=== PATIENT | female | born 1990 | race Two or more races ===

== ENCOUNTER 2024-12-01 17:58 | Observation (INO) | payer OTHER, SELFPAY ==
[2024-12-01] VITALS (16 sets, daily range): BP systolic 121; BP diastolic 71; PULSE 83–104; RESP 18–97; TEMP 36.9; O2SAT 96–98; BMI 36.9
[2024-12-01 18:41] LABS: ROM Kit Exp Date# 04/11/28; ROM Kit Lot # 58106258; ROM Swab Mixed By: FS; Swb Mxed in Solvent 1 min? Yes
[2024-12-01 18:44] LABS: Rupture of Fetal Membranes Negative (Negative)
== END 2024-12-01 19:23 | disposition home or self-care (01) ==
PROVIDERS: Admitting Provider Specialist; Visit Provider Specialist
DX: Z34.83 Encounter for supervision of other normal pregnancy, third trimester (principal); Z3A.39 39 weeks gestation of pregnancy
CPT/HCPCS: 59899; 84112

== ENCOUNTER 2024-12-11 23:40 | Inpatient (IN) | payer BC, SELFPAY ==
[2024-12-11 23:48] VITALS: BP 127/80; PULSE 100; RESP 18; RESP 96; TEMP 37; BMI 36.8
[2024-12-11 23:52] VITALS: BP 127/80; PULSE 100; PULSE 98; O2SAT 96
[2024-12-11 23:57] VITALS: PULSE 111; O2SAT 96
[2024-12-12] VITALS (21 sets, daily range): BP systolic 103–145; BP diastolic 56–83; PULSE 69–121; RESP 16–18; TEMP 36.6–37.1; O2SAT 96–98; BMI 36.8
[2024-12-12] MEDS: RINGERS LACTATED 1000 ML 1,000 ML 100 ML IV (00:30)
--- NOTE | 2024-12-12 01:22 | PD.LDHP ---
Documentation for date of: 12/12/24 OB Labor/Induct. HPI History of Present Illness Comments: RE: VIVIEN CROOK : 1990 DATE OF ADMISSION: 12/12/2024 This is a 34-year-old 5, para 3-0-1-3 with due date of 12/06 with intrauterine at 40 weeks 6 days , who presents for to [facility] for contractions. The RN notes she is 6 cm in active labor. She denies any leaking or bleeding. Reports normal movement. complicated by third trimester itching without rash with work up showing normal bile acid level 3.0 cm ruling out cholestasis. ALLERGIES: NO KNOWN DRUG ALLERGIES. MEDICATIONS: multivitamin 1 p.o. daily. PAST MEDICAL HISTORY: Asthma, white coat hypertension, seasonal allergies, rubella nonimmune, urinary tract infection in due to Enterococcus faecalis on 06/09/2024. FAMILY HISTORY: Nephew has autism. Father, paternal grandmother, paternal uncle all have diabetes. Paternal grandmother, stroke. SOCIAL HISTORY: She is . She denies any alcohol, drug use or smoking. OBSTETRIC HISTORY: In 2014, 6 weeks spontaneous AB, no D and C. In 10/2015, 40-week normal vaginal delivery, 1-quahw-5-ounce male, no complications. In 10/2017, 40-week normal vaginal delivery, 0-livvd-4-ounce female, no complications. In 05/2020, 40-week normal vaginal delivery, 4-stgpf-9-ounce female, no complications. PAST SURGICAL HISTORY: Denies. REVIEW OF SYSTEMS: She denies any chest pain, palpitations, cough, fever, shortness of breath or lower extremity pain. PHYSICAL EXAMINATION: VITAL SIGNS: Blood pressure 112/69, heart rate 88, respirations 18, temperature is 98.6, weight 207 pounds. HEENT: Oropharynx and sclerae clear. LUNGS: Clear to auscultation bilaterally. HEART: Regular rate and rhythm. ABDOMEN: Gravid, term size, consistent with estimated weight 8.5 pounds. EXTREMITIES: Nontender. SKIN: No gross rashes or lesions. NEUROLOGIC: No focal deficit. Pelvic Exam: See RN notes. ASSESSMENT AND PLAN: Intrauterine at 40 weeks 6 days , Active Labor. Anticipate . Informed consent obtained. The patient was made aware of the risk complications alternatives and benefits of operative vaginal delivery and delivery. She agrees with these modes of delivery if indicated Labs Labs: Negative: RPR, Hepatitis B, Rubella Titre, HIV, Chlamydia, Gonorrhea and Group Beta Strep and Unknown: Herpes Type 1, Herpes Type 2 and Covid-19 Meds Home Medications and Allergies Home Medications ?Medication ?Instructions ?Recorded ?Confirmed ?Type vitamin-ferrous fumarate 1 tab PO QDAY 05/15/20 12/12/24 History 28 mg iron-folic acid 800 mcg tablet ( Vitamins with Minerals) cetirizine 10 mg capsule (All Day 10 mg PO QDAY 12/12/24 12/12/24 History Allergy (cetirizine)) Allergies Allergy/AdvReac Type Severity Reaction Status Date / Time No Known Allergies Allergy Verified 12/11/24 23:49 OB Exam Physical Exam Vital signs: Temp Pulse Resp BP Pulse Ox 98.6 F 91 16 128/83 96 12/11/24 23:48 12/12/24 00:07 12/12/24 00:37 12/12/24 00:07 12/12/24 00:12
[2024-12-12 01:57] LABS: Basophils # (Auto) 0.0 Thou/mm3 (0.0-0.2); Basophils % (Auto) 0 % (0-2.5); Eosinophils # (Auto) 0.1 Thou/mm3 (0.0-0.5); Eosinophils % (Auto) 1 % (0-10); Hematocrit 40.7 % (36.0-46.0); Hemoglobin 13.5 g/dL (12.0-16.0); Immature Granulocytes Auto 0.04 Thou/mm3 (0.00-0.00); Lymphocytes # (Auto) 2.6 Thou/mm3 (1.0-4.8); Lymphocytes % (Auto) 21 % (10-50); Mean Corpuscular HGB Conc 33.2 g/dl (31.0-37.0); Mean Corpuscular Hemoglobin 29.2 pg (25.0-35.0); Mean Corpuscular Volume 88 fL (80-100); Monocytes # (Auto) 0.9 Thou/mm3 (0.0-0.8); Monocytes % (Auto) 7 % (0-12); Neutrophils # (Auto) 8.8 Thou/mm3 (1.8-7.7); Neutrophils % (Auto) 71 % (37-80); Nucleated Red Blood Cell # 0.00 Thou/mm3 (0.00-0.00); Nucleated Red Blood Cell % 0 /100 WBC (0); Platelet Count 265 Thou/mm3 (140-440); RDW Standard Deviation 47.7 fL (36.4-46.3); Red Blood Count 4.62 Miln/mm3 (4.00-5.20); White Blood Count 12.4 Thou/mm3 (3.6-11.0)
--- NOTE | 2024-12-12 01:59 | ESDS_ITS ---
DS: Providers Provider Date of admission: 12/12/24 00:30 Primary care physician: Physician No Primary/Family Admitting Provider: Steven Olivares MD Attending Provider on Admission: Steven Olivares MD Attending Provider on DC: Steven Olivares MD Discharging Provider: Steven Olivares MD DS: Diagnosis Problem List Completed Was Problem List Reviewed/Reconciled?: Yes Summary/Hosp Course Peripartum Data Delivery Method: Normal Vaginal Delivery Time Spent with Patient Time attestation: Total time spent providing and/or coordinating discharge services: Exam Vital Signs Temp Pulse Resp BP Pulse Ox 98.6 F 87 16 122/64 96 12/11/24 23:48 12/12/24 01:46 12/12/24 00:37 12/12/24 01:46 12/12/24 00:12 Discharge Plan Plan Patient Disposition: HOME (Self Care) Patient condition on transfer: Stable Prescriptions/Referrals Prescriptions/Med Rec: New ibuprofen 600 mg tablet 600 mg PO Q6H PRN (Reason: pain) Qty: 30 0RF No Action vit-iron fum-folic ac [ Vitamin with Minerals] 28 mg iron- 800 mcg Tablet 1 tab PO QDAY All Day Allergy (cetirizine) 10 mg capsule 10 mg PO QDAY Referrals: No Primary/Family,Physician [Primary Care Provider] Patient/Caregiver Discharge Instructions Discharge Activity: activity as tolerated Other Discharge Activity Instructions:: Follow up office 6 weeks Print Language: Salvadorean Stand Alone Forms: [facility] Award Info., Patient Portal Info Letter Planned Discharge Date 12/13/24
[2024-12-12] MEDS: IBUPROFEN TAB 400 MG TABLET 800 MG PO ×2 (02:03→12:16)
[2024-12-12] MEDS: BENZO/LANO/ALOE (Dermoplast) 60 GM CAN 1 SPRAY TOP (02:04)
[2024-12-12] MEDS: LIDOCAINE HCL 1% 20 ML VIAL INFL (02:04)
[2024-12-12] MEDS: OXYTOCIN in NS 20 units 20 UNIT/1,000 ML BAG 125 UNIT IV (02:04)
--- NOTE | 2024-12-12 02:09 | PD.LDDELS ---
Data ([facility]) Data Hx Section: No : 5 Term: 3 : 2 Livin Abortions: Spontaneous & Theraputic: 1 Delivery Data ([facility]) Labor Data Initiation of labor: Spontaneous Induction/Augmentation Agent: Artificial ROM ROM date: 12/12/24 ROM time: 01:35 Amniotic membrane rupture type: Artificial Amniotic fluid description: Moderate Meconium Delivery Data EDC: 12/06/24 EDC calculated by:: LMP/early US confirmation Onset of labor date: 12/11/24 Onset of labor time: 20:00 Complete dilation date: 12/12/24 Complete dilation time: 01:35 delivery date: 12/12/24 [place] delivery time: 01:38 Gestational age (weeks): 40 Gestational age (days): 6 Placenta delivery date: 12/12/24 Placenta delivery time: 01:46 Stage 1 total time: Labor - Stage 1 Duration 5 hours and 35 minutes Delivered by: Steven Olivares Delivery nurse: alyssa Tan nurse: yisel castro rn Operational Intelligence Officer at delivery: No Support person(s) at delivery: father of baby Delivery Method Delivery method: Normal Vaginal Delivery Presentation: Vertex position: OA Anesthesia Type Anesthesia Type: Local Placenta Placenta delivery description: Spontaneous Cord blood sent to lab: Yes cord blood collection: Cord Blood Type Episiotomy Episiotomy description: None Lacerations #1: Perineal: 1st degree Perineal repair Sutures used for repair: 3.0 Chromic EBL Estimated blood loss (ml): 100 Umbilical Cord cord description: 3 Vessels Additional Procedures None Complications Complications: None [place] Data ([facility]) [place] Data order: 1 's gender: Female 1 minute: 9 5 minutes: 9 10 minutes: 9
[2024-12-12 03:08] LABS: Syphilis Nonreactive (Nonreactive)
[2024-12-12 06:46] LABS: Basophils # (Auto) 0.0 Thou/mm3 (0.0-0.2); Basophils % (Auto) 0 % (0-2.5); Eosinophils # (Auto) 0.0 Thou/mm3 (0.0-0.5); Eosinophils % (Auto) 0 % (0-10); Hematocrit 38.8 % (36.0-46.0); Hemoglobin 12.9 g/dL (12.0-16.0); Immature Granulocytes Auto 0.07 Thou/mm3 (0.00-0.00); Lymphocytes # (Auto) 1.3 Thou/mm3 (1.0-4.8); Lymphocytes % (Auto) 10 % (10-50); Mean Corpuscular HGB Conc 33.2 g/dl (31.0-37.0); Mean Corpuscular Hemoglobin 29.5 pg (25.0-35.0); Mean Corpuscular Volume 89 fL (80-100); Monocytes # (Auto) 0.6 Thou/mm3 (0.0-0.8); Monocytes % (Auto) 4 % (0-12); Neutrophils # (Auto) 11.5 Thou/mm3 (1.8-7.7); Neutrophils % (Auto) 85 % (37-80); Nucleated Red Blood Cell # 0.00 Thou/mm3 (0.00-0.00); Nucleated Red Blood Cell % 0 /100 WBC (0); Platelet Count 249 Thou/mm3 (140-440); RDW Standard Deviation 47.9 fL (36.4-46.3); Red Blood Count 4.38 Miln/mm3 (4.00-5.20); White Blood Count 13.5 Thou/mm3 (3.6-11.0)
[2024-12-12] MEDS: DOCUSATE SOD 100 MG CAPSULE PO (09:37)
[2024-12-13 03:30] VITALS: BP 110/67; PULSE 70; RESP 14; TEMP 36.8; O2SAT 96
[2024-12-13 08:00] VITALS: BP 129/80; PULSE 66; RESP 16; TEMP 36.7; O2SAT 95
[2024-12-13] MEDS: DOCUSATE SOD 100 MG CAPSULE PO (08:59)
--- NOTE | 2024-12-13 09:31 | ESPR_ITS ---
RE: VIVIEN CROOK : 1990 DATE OF SERVICE: 12/13/2024 SUBJECTIVE: day #1. The patient denies any problem or complaints. She is voiding. She is ambulating. She is tolerating diet. She is passing flatus. She denies any excessive vaginal bleeding. She denies any dizziness or lightheadedness. She denies any chest pain, palpitations, shortness of breath, or lower extremity pain. OBJECTIVE: VITAL SIGNS: Blood pressure 110/67, heart rate 70, respirations 14, temperature is 98.3, pulse ox is 96% on room air. LUNGS: Clear to auscultation bilaterally. HEART: Regular rate and rhythm. ABDOMEN: Fundus is firm, nontender. EXTREMITIES: Nontender. LABORATORY DATA: Hemoglobin pre-delivery is 13.5, post-delivery is 12.9. ASSESSMENT: day #1, status post spontaneous vaginal delivery. PLAN: Discharge home. Discharge instructions given. Follow up in the office in 6 weeks. DT: 07:20:27 TT: 09:31:00 Ref: [id number] - TID: [id number]
[2024-12-13 12:30] VITALS: BP 120/78; PULSE 72; RESP 12; TEMP 36.9; O2SAT 97
== END 2024-12-13 13:00 | disposition home or self-care (01) | DRG 807 ==
LOC: S4SX 12-12 01:30 → S4NX 12-12 04:06
PROVIDERS: Admitting Provider Specialist; Visit Provider Specialist
DX: O48.0 Post-term pregnancy (principal); Z37.0 Single live birth; O77.0 Labor and delivery complicated by meconium in amniotic fluid; O70.0 First degree perineal laceration during delivery; Z3A.40 40 weeks gestation of pregnancy
CPT/HCPCS: 36415; 59025; 59409; 59899; 85025; 85461; 86780; 86850; 86900; 86901; 94762; J2590; J2790; J3490; J7120; A9270